=== PATIENT | female | born 1990 | race Caucasian/White ===

== ENCOUNTER 2016-07-10 11:21 | Emergency (ER) | payer MEDICAID, OTHER ==
[~2016-07-10] VITALS: Ht 157.5 cm; Wt 53.5 kg
[~2016-07-10 11:21] MED LIST: VICODIN
[2016-07-10 11:32] VITALS: BP 128/76
--- NOTE | 2016-07-10 11:48 | NUR ---
Patient ambulated to bed 04.
--- NOTE | 2016-07-10 11:48 | NUR ---
PATIENT PRESENTS TO ED WITH RIGHT LOWER JAW PAIN . PT STATES MOLAR BROKE, SURE SHE NEEDS ROOT CANAL BUT HAS NOT BEEN ABLE TO SEE DENTIST . DENIES N/V/D; SKIN IS PINK/WARM/DRY; AAOX4 WITH EVEN AND STEADY GAIT; LUNGS CLEAR BL; HR EVEN AND REGULAR; PT DENIES ANY FEVER, CP, SOB, OR COUGH AT THIS TIME; PATIENT STATES PAIN OF 10/10 BUT NOT AT THIS TIME; VSS; PATIENT POSITIONED FOR COMFORT; HOB ELEVATED; BEDRAILS UP X2; BED DOWN. ER MD MADE AWARE OF PT STATUS.
--- NOTE | 2016-07-10 12:29 | NUR ---
LISETH De Dios evaluating patient at bedside.
[2016-07-10] MEDS ORDERED: NACL 0.9% 1,000 ML IV SCH (12:51)
--- NOTE | 2016-07-10 13:03 | NUR ---
PROVIDED PT WITH CUP FOR URINE SAMPLE, SHE WILL CHANGE INTO A GOWN WELL. PT AWARE OF IV FLUIDS ORDERED AND DIAGNOSTIC
--- NOTE | 2016-07-10 13:29 | NUR ---
CONSENT FOR CT SCAN SIGNED BY PT
--- NOTE | 2016-07-10 13:32 | NUR ---
Dr. Lui evaluating patient at bedside.
[2016-07-10 13:52] LABS: BASOPHILS # (AUTO) 0.1 K/uL (0.00-0.22); BASOPHILS % (AUTO) 2.2 % (0.0-2.0); EOSINOPHILS # (AUTO) 0.2 K/uL (0-0.4); EOSINOPHILS % (AUTO) 3.6 % (0.0-4.0); HEMATOCRIT 42.3 % (36-48); HEMOGLOBIN 13.9 g/dL (12.0-16.0); LYMPHOCYTES % (AUTO) 31.4 % (20.5-51.1); MEAN CORPUSCULAR HEMOGLOBIN 29 pg (27-31); MEAN CORPUSCULAR HGB CONC 33 g/dL (33-37); MEAN CORPUSCULAR VOLUME 88 fL (80-94); MONOCYTES # (AUTO) 0.3 K/uL (0.8-1.0); MONOCYTES % (AUTO) 5.1 % (1.7-9.3); NEUTROPHILS # (AUTO) 3.8 K/uL (1.8-7.7); NEUTROPHILS % (AUTO) 57.7 % (42.2-75.2); PLATELET COUNT (AUTO) 265 K/uL (140-450); RED BLOOD CELL COUNT(AUTO) 4.79 MIL/uL (4.20-5.40); RED CELL DISTRIBUTION WIDTH 11.5 % (11.6-13.7); WHITE BLOOD COUNT (AUTO) 6.4 K/uL (4.8-10.8)
[2016-07-10 14:03] LABS: ANION GAP 13.3 (8-16); CALCIUM 8.4 mg/dL (8.5-10.1); CARBON DIOXIDE 25.6 mmol/L (21-32); CREATININE 0.7 mg/dL (0.6-1.3); POTASSIUM 3.9 mmol/L (3.5-5.1)
[2016-07-10 14:08] LABS: ALBUMIN 4.3 g/dL (3.4-5.0); TOTAL BILIRUBIN 0.5 mg/dL (0.0-1.0); TOTAL PROTEIN, SERUM 8.4 g/dL (6.4-8.2)
--- NOTE | 2016-07-10 14:23 | NUR ---
pt to ct scan
--- NOTE | 2016-07-10 15:06 | NUR ---
CT has been completed--pt admits to pain left sided of jaw-md notified--
[2016-07-10] MEDS ORDERED: KETOROLAC 30 MG/ML VIAL IVP ONE (15:15)
--- NOTE | 2016-07-10 15:27 | NUR ---
spoke with pt, made aware she will be dc shortly and to f/u with dentist
[2016-07-10] MEDS ORDERED: LIDOCAINE 1% 500 MG/50 ML VIAL INJ ONE (16:35)
--- NOTE | 2016-07-10 16:45 | NUR ---
MD DOES NOT PT DC JUST YET--WILL INJECT A LIDOCAINE BLOCK INTO MOUTH SURROUNDING AFFECTED TOOTH. VERBAL DC INSTRUCTIONS GIVEN TO PT--AWAIT DC PAPERWORK FROM
[2016-07-10 16:59] VITALS: BP 117/74
== END 2016-07-10 17:01 | disposition home or self-care (01) ==
LOC: MED 11:21
DX: K08.89 Other specified disorders of teeth and supporting structures (principal); R05 Cough; R09.81 Nasal congestion; R11.0 Nausea; H53.8 Other visual disturbances
CPT/HCPCS: 36415; 64450; 70487; 80053; 81002; 81025; 84703; 85025; 85651; 86140; 96361; 96374; 99285; J1885; J2001; J7030; Q9967